=== PATIENT | female | born 1955 | race Caucasian/White ===

== ENCOUNTER 2019-02-09 18:12 | Emergency (ER) | payer MEDICAID ==
[~2019-02-09] VITALS: Ht 152.4 cm; Wt 91.4 kg
[2019-02-09] MEDS ORDERED: LISI-661 PO (18:15)
[2019-02-09] MEDS ORDERED: INSU100V SQ (18:15)
[2019-02-09] MEDS ORDERED: METF-960 PO (18:15)
[2019-02-09 18:16] VITALS: BP 146/89
== END 2019-02-09 19:20 | disposition left against medical advice (07) ==
LOC: EMS 18:14
DX: R11.2 Nausea with vomiting, unspecified (principal); R10.9 Unspecified abdominal pain; E11.9 Type 2 diabetes mellitus without complications; I10 Essential (primary) hypertension; Z53.21 Procedure and treatment not carried out due to patient leaving prior to being seen by health care provider

== ENCOUNTER 2024-10-09 20:20 | Emergency (ER) | payer MEDICAID ==
[~2024-10-09] VITALS: Ht 154.9 cm; Wt 69.1 kg
[~2024-10-09 20:20] MED LIST: INSU100V SQ; LISI-893 PO; METF-1211 PO
[2024-10-09 20:44] VITALS: BP 131/69; PULSE 93; RESP 20; TEMP 97.3; O2SAT 99
[2024-10-09 22:13] LABS: BASOPHILS % (AUTO) 0.1 % (0.0-2.0); EOSINOPHILS % (AUTO) 0.2 % (1.0-6.0); HEMATOCRIT 36.2 % (36-46); HEMOGLOBIN 11.9 g/dL (12.0-16.0); LYMPHOCYTES # (AUTO) 1.4 K/uL (1.0-4.8); MEAN CORPUSCULAR HEMOGLOBIN 26.6 pg (26.0-34.0); MEAN CORPUSCULAR VOLUME 81 fL (80-100); MONOCYTES # (AUTO) 0.6 K/uL (0.1-1.0); MONOCYTES % (AUTO) 7.4 % (2.0-9.0); NEUTROPHILS # (AUTO) 5.9 K/uL (1.8-7.7); NEUTROPHILS % (AUTO) 74.3 % (40.0-70.0); PLATELET COUNT (AUTO) 206 K/uL (150-450); RED BLOOD CELL COUNT(AUTO) 4.49 MIL/uL (4.00-5.20); RED CELL DISTRIBUTION WIDTH 22.3 % (11.5-14.5); WHITE BLOOD COUNT (AUTO) 7.9 K/uL (4.5-11.0)
[2024-10-09 22:15] LABS: RBC MORPHOLOGY COMMENT ABNORMAL RBC MORPH
[2024-10-09 22:29] LABS: ANION GAP 10 mmol/L (8-16); CALCIUM, TOTAL 9.6 mg/dL (8.8-10.5); CARBON DIOXIDE 27 mmol/L (22-29); CHLORIDE 102 mmol/L (98-107); CREATININE 1.15 mg/dL (0.60-1.30); GLOMERULAR FILTR. RATE CALC 47 mL/min (>60); GLUCOSE,RANDOM 137 mg/dL (70-110); POTASSIUM 4.1 mmol/L (3.5-5.1); SODIUM SERUM 139 mmol/L (136-145); UREA NITROGEN, BLOOD 21 mg/dL (7-18)
[2024-10-09] MEDS: AMOX TR/POT CLAV 875 MG/125 MG TABLET PO ONE (23:27)
[2024-10-09] MEDS: PERTUSS(ACELL),DIPH,TET/PF 0.5 ML SYRINGE [ADULT] IM. ONE (23:29)
[2024-10-10] MEDS ORDERED: AMOX-457 PO (00:44)
== END 2024-10-10 01:44 | disposition home or self-care (01) ==
LOC: EMS 20:20
DX: S61.401A Unspecified open wound of right hand, initial encounter (principal); E11.9 Type 2 diabetes mellitus without complications; I10 Essential (primary) hypertension; Z79.899 Other long term (current) drug therapy; W54.0XXA Bitten by dog, initial encounter; Y93.89 Activity, other specified; Y92.89 Other specified places as the place of occurrence of the external cause; Y99.8 Other external cause status
CPT/HCPCS: 80048; 82962; 83605; 85025; 90471; 90715; 99283